=== PATIENT | female | born 1955 ===

== ENCOUNTER 2018-04-07 11:32 | Outpatient (CLI) | payer OTHER | END 2018-04-07 11:42 | disposition home or self-care (01) | LOC: SONOGRAMA 11:32 | DX: M12.9 Arthropathy, unspecified (principal); M19.90 Unspecified osteoarthritis, unspecified site ==

== ENCOUNTER 2018-11-09 10:26 | Outpatient (CLI) | payer OTHER | END 2018-11-09 10:28 | disposition home or self-care (01) | LOC: RAD 10:26 | DX: R07.89 Other chest pain (principal); Z01.811 Encounter for preprocedural respiratory examination ==